=== PATIENT | male | born 1985 | race Caucasian/White ===

== ENCOUNTER → 2017-04-04 | Outpatient (CLI) | payer BC ==
--- NOTE | 2017-04-06 13:10 | SLEEPCENT ---
DATE OF PROCEDURE: 04/04/2017 REQUESTING PROVIDER: Clarita Multani NP INTERPRETATION: Nocturnal polysomnography was performed for the titration of pressure therapy in this patient with a clinical diagnosis of obstructive sleep apnea syndrome and confirmatory home testing revealing a respiratory event index of 35. For testing, the patient was fit with a [employer] Quattro Mirage full face mask of medium size, 5 cm of water pressure were applied to the circuit and the lights were extinguished. 7 hours and 25 minutes of data were reviewed. There were 215 minutes of sleep identified. Sleep latency was prolonged at 35 minutes. Rapid eye movement (REM) latency was normal at 52 minutes. Sleep architecture was fair. There was a prolonged period of wake in the mid portion of the study resulting in reduced sleep efficiency of 50%. Electrocardiogram (EKG) showed a sinus rhythm with an average heart rate of 64 beats per minute. Rate variability was seen surrounding respiratory events. Rate ranged 56 to 84. Electroencephalogram (EEG) showed reasonably normal waveforms for awake and sleep. No focal events being identified. Despite low CPAP pressure, respiratory events were seen of central character, not elicited by the pressure device. Despite optimal mask fit and minimal air leak, the patient was changed to a bilevel device. Central events persisted, not elicited by pressure therapy, requiring the addition of a backup rate. Best sleep was seen on a bilevel device with inspiratory pressure of 12/expiraotry pressure of 8 with a backup rate of 8. IMPRESSION: 1. Complex obstructive sleep apnea syndrome (G47.31, G47.33). RECOMMENDATIONS: Nightly use of bilevel pressure therapy with inspiratory pressure of 12/expiratory pressure of 8 with a backup rate of 8.
== END ==
LOC: M SLEEP 22:00
PROVIDERS: ATTEND Nurse Practitioner Adult Health
DX: G47.33 Obstructive sleep apnea (adult) (pediatric) (principal); G47.31 Primary central sleep apnea

== ENCOUNTER → 2019-12-07 | Outpatient (REF) | payer BC | LOC: M LAB REF 22:21 | PROVIDERS: ATTEND Physician Assistant Medical | DX: R50.9 Fever, unspecified (principal) ==

== ENCOUNTER → 2021-10-28 | Outpatient (CLI) | payer BC | LOC: M RAD 08:14 | PROVIDERS: ATTEND Family Medicine | DX: K76.0 Fatty (change of) liver, not elsewhere classified (principal); R79.89 Other specified abnormal findings of blood chemistry ==

== ENCOUNTER → 2023-07-20 | Outpatient (REF) | payer BC | LOC: M LAB REF 16:30 | PROVIDERS: ATTEND Family Medicine | DX: E07.9 Disorder of thyroid, unspecified (principal) ==

== ENCOUNTER → 2024-01-23 | Outpatient (REF) | payer BC | LOC: M LAB REF 12:05 | PROVIDERS: ATTEND Family Medicine | DX: R68.82 Decreased libido (principal) ==

== ENCOUNTER → 2024-06-16 | Outpatient (CLI) | payer BC ==
[2024-06-26 03:32] LABS: ALPHA 2-MACROGLOBULINS,QN 186 mg/dL (106-279); ALT (SGPT) P5P 49 U/L (9-46); APOLIPOPROTEIN A-1 138 mg/dL (94-176); BILIRUBIN, TOTAL 0.5 mg/dL (0.2-1.2); FIBROSIS SCORE 0.18; FIBROSIS STAGE NO FIBROSIS (F0); GGT 48 U/L (3-90); HAPTOGLOBIN 160 mg/dL (43-212); NECROINFLAM ACT GRADE NO ACTIVITY (A0); NECROINFLAM ACT SCORE 0.25
== END ==
LOC: M LAB 09:53
DX: K75.81 Nonalcoholic steatohepatitis (NASH) (principal)

== ENCOUNTER 2024-07-09 09:57 | Emergency (ER) | payer BC ==
[~2024-07-09] VITALS: Ht 175.3 cm; Wt 128.7 kg
[2024-07-09] MEDS ORDERED: LEVO25TA5 (10:06)
[2024-07-09 11:14] LABS: BASO # 0.1 10^3/uL (0.0-0.2); BASO % 0.7 % (0.0-1.0); EOS # 0.2 10^3/uL (0.0-0.5); EOS % 2.9 % (0.0-3.0); HEMATOCRIT 45.7 % (42.0-52.0); HEMOGLOBIN 15.3 g/dl (13.5-17.5); LYMPH # 2.5 10^3/uL (1.5-5.0); MEAN CORPUSCULAR HEMOGLOBIN 30.1 pg (27.0-33.0); MEAN CORPUSCULAR HGB CONC 33.5 g/dl (32.0-36.5); MONO # 0.7 10^3/uL (0.0-0.8); MONO % 8.9 % (2.0-8.0); NEUTROPHILS # 4.1 10^3/uL (1.5-8.5); NEUTROPHILS % 54.1 % (36.0-66.0); PLATELET COUNT, AUTOMATED 295 10^3/uL (150-450); RED BLOOD COUNT 5.08 10^6/uL (4.30-6.10); WHITE BLOOD COUNT 7.6 10^3/uL (4.0-10.0)
[2024-07-09 11:38] LABS: BLOOD UREA NITROGEN 17 MG/DL (9-23); CALCIUM LEVEL 9.2 MG/DL (8.5-10.1); CARBON DIOXIDE LEVEL 28 MMOL/L (20-31); CHLORIDE LEVEL 109 MMOL/L (98-107); CK-MB VALUE MASS < 1.0 NG/ML (<3.6); CREATININE FOR GFR 0.85 MG/DL (0.70-1.30); GLOMERULAR FILTRATION RATE > 60.0 (>60); GLUCOSE, FASTING 108 MG/DL (60-100); POTASSIUM SERUM 3.9 MMOL/L (3.5-5.1); SODIUM LEVEL 140 MMOL/L (136-145)
[2024-07-09 11:40] LABS: CPK CREATINE PHOSPHOKINASE 267 U/L (46-171); MB/CK RELATIVE INDEX 0.37 (< OR =4)
[2024-07-09 12:40] LABS: CK-MB VALUE MASS < 1.0 NG/ML (<3.6); MAGNESIUM LEVEL 2.4 MG/DL (1.8-2.4)
[2024-07-09 12:42] LABS: CPK CREATINE PHOSPHOKINASE 246 U/L (46-171)
[2024-07-09 12:45] LABS: THYROID STIMULATING HORMONE 4.037 uIU/ML (0.55-4.78)
[2024-07-09 16:46] VITALS: BP 158/74
[2024-07-09] MEDS: METOPROLOL TART 25 MG TABLET PO ONE (16:46)
[2024-07-09 17:45] VITALS: TEMP 97.4
[2024-07-09 21:00] VITALS: O2SAT 95
[2024-07-09 21:21] VITALS: BP 144/78
[2024-07-09] MEDS ORDERED: METO1TAB87 PO (21:38)
== END 2024-07-09 21:54 | disposition home or self-care (01) ==
LOC: M ED 09:57
DX: R00.8 Other abnormalities of heart beat (principal); Z88.2 Allergy status to sulfonamides; Z79.899 Other long term (current) drug therapy

== ENCOUNTER → 2025-05-15 | Outpatient (CLI) | payer BC ==
[~2025-05-15] MED LIST: LEVO25TA5; METO1TAB87 PO
== END ==
LOC: M RAD 07:55
PROVIDERS: ATTEND Physician Assistant
DX: K75.81 Nonalcoholic steatohepatitis (NASH) (principal); R16.0 Hepatomegaly, not elsewhere classified